=== PATIENT | female | born 1970 | race Caucasian/White ===

== ENCOUNTER 2017-03-05 11:13 | Observation (INO) | payer BC ==
[2017-02-22 09:31] VITALS: BMI 32.0
--- NOTE | 2017-02-22 09:48 | PAT Medication Instructions ---
Service Date Feb 22, 2017. Current Home Medication List Black Cohosh (Cimicifuga Racem (Black Cohosh Hot Flash Re), 2 TAB PO QAM Calcium Carbonate-Vitamin D (Calcium), 1 TAB PO QAM Coenzyme Q10 (Ubidecarenone) (Co Q 10), 100 MG PO QAM Flaxseed (Linseed) (Cvs Flaxseed Oil 1000 mg), 1 CAP PO QAM Magnesium (Chelated Magnesium), 100 MG PO QAM Multivitamin (Multivitamin), 1 TAB PO DAILY Potassium (Potassium), 75 MG PO QAM Vitamin A-Beta Carotene (Vitamin A), 1 TAB PO QAM Vitamin E (Vitamin E), 100 INTUNIT PO QAM Medication Instructions For Your Scheduled Surgery - Hold the following medications starting 02/23/17: Vitamin E (Vitamin E), 100 INTUNIT PO QAM Black Cohosh (Cimicifuga Racem (Black Cohosh Hot Flash Re), 2 TAB PO QAM Coenzyme Q10 (Ubidecarenone) (Co Q 10), 100 MG PO QAM Flaxseed (Linseed) (Cvs Flaxseed Oil 1000 mg), 1 CAP PO QAM - Hold the following medications the morning of surgery: Calcium Carbonate-Vitamin D (Calcium), 1 TAB PO QAM Magnesium (Chelated Magnesium), 100 MG PO QAM Multivitamin (Multivitamin), 1 TAB PO DAILY Potassium (Potassium), 75 MG PO QAM Vitamin A-Beta Carotene (Vitamin A), 1 TAB PO QAM If you have any questions please call us at [phone] or [phone] or [phone]
--- NOTE | 2017-02-22 10:13 | DIAGNOSTIC IMAGING REPORT ---
TWO VIEW CHEST CLINICAL HISTORY: Preoperative examination. FINDINGS: PA and lateral chest radiographs are obtained. No prior studies are available for comparison at the time of dictation. The cardiomediastinal silhouette is unremarkable. The lungs and pleural spaces are clear. There is no pneumothorax. The bony thorax appears intact. IMPRESSION: No active disease in the chest. Electronically signed by: Iron Feliciano M.D. 02/22/2017 10:11 AM Dictated Date/Time: 02/22/2017 10:10 AM
[2017-02-22 10:26] LABS: BASO % 0.6 %; BASO ABS # 0.02 K/uL (0-0.2); COMPLETE YES; EOS % 2.2 %; HEMATOCRIT 34.4 % (37-47); IG% 0.3 %; LYMPH % 36.6 %; LYMPH ABS # 1.32 K/uL (1.2-3.4); MEAN CELL VOLUME 89.8 fL (80-100); MEAN CORPUSCULAR HEMOGLOBIN 29.2 pg (25-34); MEAN CORPUSCULAR HGB CONC 32.6 g/dl (32-36); MEAN PLATELET VOLUME 10.2 fL (7.4-10.4); NEUT % 52.3 %; PLATELET COUNT 273 K/uL (130-400); RED BLOOD COUNT 3.83 M/uL (4.2-5.4); WHITE BLOOD COUNT 3.61 K/uL (4.8-10.8)
[2017-02-22 10:33] LABS: PARTIAL THROMBOPLASTIN RATIO 1.1; PROTHROMBIN TIME (PATIENT) 10.5 SECONDS (9.0-12.0)
[2017-02-22 11:25] LABS: URINE APPEARANCE CLEAR (CLEAR); URINE BILIRUBIN NEG (NEG); URINE COLOR YELLOW; URINE NITRITE NEG (NEG); URINE PH 7.5 (4.5-7.5); URINE SPECIFIC GRAVITY 1.013 (1.000-1.030); UROBILINOGEN NEG (NEG)
[2017-02-22 11:34] LABS: MANUAL MICROSCOPIC REQUIRED? NO; REVIEW REQ? NO
[2017-02-22 11:37] LABS: BUN/CREATININE RATIO 16.1 (10-20); CALCIUM 8.7 mg/dl (8.5-10.1); CREATININE 0.93 mg/dl (0.60-1.20); POTASSIUM 4.1 mmol/L (3.5-5.1)
[2017-03-05] VITALS (7 sets, daily range): BP systolic 116–128; BP diastolic 78–85; PULSE 79–98; TEMP 36.4–37.1; O2SAT 96–100; Ht 172.7 cm; Wt 96.8 kg
[~2017-03-05] VITALS: Ht 172.7 cm; Wt 96.8 kg
[~2017-03-05 11:13] MED LIST: BLAC40CA PO; CALC-51 PO; CEFAZOLIN 2000 MG/60 ML D5W 60 ML IV SCH; COEN1CAP17 PO; FLAX1CAP PO; MAGN1TAB16 PO; MULT-506 PO; POTA75TA PO; VITA1TAB12 PO; VITATAB19 PO
--- NOTE | 2017-03-05 11:49 | HISTORY & PHYSICAL EXAMINATION ---
DATE OF ADMISSION: 03/05/2017 CHIEF COMPLAINT: Back and lower extremity difficulty, being preoped for a discectomy L5-S1. HISTORY OF PRESENT ILLNESS: Marina is a delightful, she is 46. She injured herself with some yard work, developed some back pain, lower extremity difficulty and tingling to her feet over the last several months ____ see in the office, we exhausted conservative management, nonoperative management and she was scheduled for surgical intervention. She has a large disk herniation at L5-S1. PAST MEDICAL HISTORY: Positive for mild to moderate obesity and acid reflux. No hypertension, diabetes, or heart disease. PAST SURGICAL HISTORY: , appendectomy. ALLERGIES: Negative. MEDICATIONS: Denied. SOCIAL HISTORY: Nonsmoker, non-ETOH user, no drug use. REVIEW OF SYSTEMS: She denies blurred vision, double vision, tinnitus, vertigo, passing out. Denies chest pain, palpitations. No asthma, wheezing, no shortness of breath. No nausea, vomiting or bowel and bladder issues. Her major problem is her left lower extremity numbness and pain. OBJECTIVE: GENERAL: She is alert, oriented, pleasant young lady. She is 5 feet 8 inches, 210. VITAL SIGNS: Blood pressure 120/80. HEART: Pulse irregular. HEENT: ____ NEUROLOGIC: Slight numbness to the L5 and S1 distribution. She has pain with straight leg raising contralateral with straight leg raising pain, slight decreased reflex left side, on the Achilles. IMPRESSION: Disk herniation, lumbar spine. DISPOSITION: Includes lumbar spine discectomy L5-S1 today at [facility].
[2017-03-05] MEDS ORDERED: ACETTAB14 PO (12:09)
[2017-03-05] MEDS ORDERED: FENTANYL CITRATE INJ 50 MCG/1 ML 2 ML VIAL ONE (13:06)
[2017-03-05] MEDS ORDERED: MIDAZOLAM HCL 1 MG/ML 2ML VIAL ONE (13:06)
[2017-03-05] MEDS ORDERED: LABETALOL HCL IV 5 MG/ML 20ML IV PRN (13:45)
[2017-03-05] MEDS ORDERED: EpHEDrine SULFATE INJ 50 MG/ML AMP IV PRN (13:45)
[2017-03-05] MEDS ORDERED: PHENYLEPHRINE 100MCG/ML 5ML SYR IV PRN (13:45)
[2017-03-05] MEDS ORDERED: PROMETHAZINE HCL INJ 12.5 MG in SODIUM CHLORIDE 0.9% 50ML 50 ML IV PRN ×2 (13:45→16:45)
[2017-03-05] MEDS ORDERED: ONDANSETRON INJ 2 MG/ML 2 ML VIAL IV PRN ×2 (13:45→16:45)
[2017-03-05] MEDS ORDERED: HYDROmorphone INJ 1 MG/ML SYR IV PRN ×2 (13:45→16:45)
[2017-03-05] MEDS ORDERED: ATROPINE SULFATE 0.1 MG/ML 5ML SYR IV PRN (13:45)
[2017-03-05] MEDS ORDERED: FENTANYL CITRATE INJ 50 MCG/1 ML 2 ML VIAL IV PRN (13:45)
--- NOTE | 2017-03-05 14:38 | History & Physical Bridge Note ---
H&P Re-Evaluation Bridge Note: I have examined the patient, reviewed the History & Physical and in the interval since the performance of the History & Physical I have noted the following changes of clinical significance: No changes noted
[2017-03-05] MEDS ORDERED: THROMBIN FOR SOLN 20000 UNIT KIT ONE (14:52)
[2017-03-05] MEDS ORDERED: VANCOMYCIN HCL 1000MG/20ML VIAL ONE (14:52)
[2017-03-05] MEDS ORDERED: GELATIN SPONGE SZ 100 ONE (14:52)
[2017-03-05] MEDS ORDERED: BACITRACIN 50000 UNIT VIAL ONE (14:53)
[2017-03-05] MEDS ORDERED: ACETAMINOPHEN IV 100 ML IV STA (14:56)
[2017-03-05] MEDS ORDERED: BUPIVACAINE/EPINEPHRINE 0.5% MPF 1:200,000 30 ML VIAL ONE ×2 (14:57→14:58)
[2017-03-05] MEDS ORDERED: GLYCOPYRROLATE INJ 0.2 MG/ML VIAL ONE (15:41)
[2017-03-05] MEDS ORDERED: PROPOFOL IV EMULSION 10 MG/ML 20 ML VIAL IV ONE (15:41)
[2017-03-05] MEDS ORDERED: LARYING-O-JET KIT (LTA) ONE ×2 (15:41)
[2017-03-05] MEDS ORDERED: NEOSTIGMINE METHYLSULFATE 5 MG/5 ML SYR ONE (15:41)
[2017-03-05] MEDS ORDERED: ROCURONIUM BROMIDE 10 MG/ML 5 ML VIAL IV ONE (15:41)
[2017-03-05] MEDS ORDERED: ONDANSETRON INJ 2 MG/ML 2 ML VIAL ONE (15:41)
[2017-03-05] MEDS ORDERED: LIDOCAINE HCL 2% 2 ML VIAL (20MG/ML) ONE (15:41)
[2017-03-05] MEDS ORDERED: HYDROmorphone INJ 2 MG/ML SYR/VIAL ONE (15:42)
[2017-03-05] MEDS ORDERED: SODIUM CHLORIDE 0.9% 1000ML 1,000 ML IV SCH (16:31)
--- NOTE | 2017-03-05 16:32 | DIAGNOSTIC IMAGING REPORT ---
SPINE ONE VIEW, ANY LEVEL CLINICAL HISTORY: L5-S1 DISKECTOMY COMPARISON STUDY: No previous studies for comparison. Fluoroscopy time: 8 seconds. FINDINGS: 3 fluoroscopic images demonstrate surgical retractors and instruments directed toward over the L5-S1 disc space. IMPRESSION: Intraoperative localization of the L5-S1 disc space. Electronically signed by: Ross Diaz M.D. 03/05/2017 4:31 PM Dictated Date/Time: 03/05/2017 4:30 PM
--- NOTE | 2017-03-05 16:33 | [facility] Post Operative Brief Note ---
Immediate Operative Summary Operative Date Mar 05, 2017. Pre-Operative Diagnosis Disk herniation, lumbar spine. Post-Operative Diagnosis Disk herniation, lumbar spine. Procedure(s) Performed L5-S1 Discectomy Surgeon Dr. Brady Rashid Balloon Design Printer Surgeon(s) Berto Robledo PA-C Estimated Blood Loss 50mL Findings huge herniationb Specimens None per surgeon Complication(s) None Disposition Recovery Room / PACU
[2017-03-05] MEDS ORDERED: ACETAMINOPHEN 325 MG TAB PO PRN (16:45)
[2017-03-05] MEDS ORDERED: LORAZEPAM 1 MG TAB PO PRN (16:45)
[2017-03-05] MEDS ORDERED: METOCLOPRAMIDE HCL INJ 5 MG/ML 2 ML VIAL IV PRN (16:45)
[2017-03-05] MEDS ORDERED: HYDROmorphone INJ 2 MG/ML SYR/VIAL IV PRN (16:45)
[2017-03-05] MEDS ORDERED: OXYCODONE/ACETAMINOPHEN 5-325 TAB PO PRN ×2 (16:45)
[2017-03-05] MEDS ORDERED: LORAZEPAM INJ 1 MG in SYRINGE 0 ML IV PRN (16:45)
[2017-03-05] MEDS ORDERED: CEFAZOLIN IV 1,000 MG in DEXTROSE 5% 50ML 50 ML IV SCH (16:45)
[2017-03-05] MEDS ORDERED: MAGNESIUM HYDROXIDE SUSP 30 ML UDC PO PRN (16:45)
[2017-03-05] MEDS ORDERED: IV FLUIDS COMPLETED PRN (17:00)
--- NOTE | 2017-03-05 17:00 | OPERATIVE REPORT ---
DATE OF OPERATION: 03/05/2017 PREOPERATIVE DIAGNOSIS: Disc herniation L5-S1 on the left. POSTOPERATIVE DIAGNOSIS: Same. PROCEDURE: Included a lumbar spine laminotomy, foraminotomy and discectomy L5-S1. SURGEON: Brady Rashid DO PYTHON CONSULTANT: Berto Robledo PA-C COMPLICATIONS: Zero. BLOOD LOSS: Less than 50 mL. COUNTS: Sponge and needle count correct at the close. DESCRIPTION OF PROCEDURE: The patient was taken to the surgical suite, placed prone, prepped and draped sterile. We first scrubbed her with Betadine, prepped with ChloraPrep and draped sterile. We made a skin incision over L5-S1, dissecting the soft tissue roughly to the area at level of the facet joints. I did a mini laminotomy above stabilizing all structures. I do not feel I could stabilize the lamina. I did a downgoing foraminotomy on the left hand side as well, freeing up the S1 nerve root. I got laterally approximately 3-4 mm. The nerve root was completely compressed and bent against the disc itself was quite tedious dissection. We retracted the nerve root medial, also able to get a self-retaining retractor and held this. We did use a 15 scalpel blade, various types of pituitary rongeurs as I cleaned out the disc interval. I moved ____ about a few millimeters and took even more disc material and all free fragments. We then irrigated, closed in layers over vancomycin powder and Hemovac drain with 1 Vicryl suture, 2-0 and 3-0 nylon. Sterile dressings applied. The patient returned to PACU improved, stable. No apparent intraoperative complications. I attest to the content of the Intraoperative Record and any orders documented therein. Any exception s are noted below.
--- NOTE | 2017-03-05 17:10 | Anesthesiology Progress Note ---
Anesthesia Post Op Note Date & Time Mar 05, 2017 at 17:10 Vital Signs Pain Intensity: 0 Vital Signs Past 12 Hours Date Time Temp Pulse Resp B/P (MAP) Pulse Ox O2 Delivery O2 Flow Rate FiO2 03/05/17 17:00 70 14 125/62 100 Nasal Cannula 4 03/05/17 16:50 94 14 124/68 100 Oxymask 6 03/05/17 16:40 87 12 102/61 100 Oxymask 10 03/05/17 16:31 36.6 116 12 115/78 100 Oxymask 10 03/05/17 11:50 37.1 90 20 116/84 (95) 97 Room Air Notes Mental Status: alert / awake / arousable, participated in evaluation Pt Amnestic to Procedure: Yes Nausea / Vomiting: adequately controlled Pain: adequately controlled Airway Patency, RR, SpO2: stable & adequate BP & HR: stable & adequate Hydration State: stable & adequate Anesthetic Complications: no major complications apparent
[2017-03-05] MEDS: KETOROLAC TROMETHAMINE 30 MG/ML VIAL IV SCH (19:31)
[2017-03-05] MEDS: DEXAMETHASONE INJ 10 MG in SYRINGE 0 ML IV SCH (19:32)
[2017-03-05] MEDS: CEFAZOLIN IV 2,000 MG in SYRINGE 0 ML IV SCH ×2 (23:49→23:54)
[2017-03-06] MEDS: KETOROLAC TROMETHAMINE 30 MG/ML VIAL IV SCH ×2 (01:51→07:32)
[2017-03-06 03:23] VITALS: BP 113/74; PULSE 108; TEMP 36.9; O2SAT 98
[2017-03-06] MEDS: DEXAMETHASONE INJ 10 MG in SYRINGE 0 ML IV SCH ×2 (03:51→12:15)
[2017-03-06 04:05] VITALS: PULSE 105
[2017-03-06] MEDS ORDERED: NURSING DECISION MEDICATION ORDER SCH (04:15)
[2017-03-06] MEDS ORDERED: BISACODYL 10 MG SUPP PR PRN (06:00)
[2017-03-06] MEDS ORDERED: BISACODYL 5 MG TABEC PO PRN (06:00)
[2017-03-06 07:15] VITALS: BP 126/85; PULSE 104; TEMP 36.8; O2SAT 95
[2017-03-06] MEDS: CEFAZOLIN IV 2,000 MG in SYRINGE 0 ML IV SCH (07:31)
--- NOTE | 2017-03-06 07:58 | Discharge Instructions ---
Discharge Instructions Date of Service Mar 06, 2017. Admission Reason for Admission: Left L5-S1 Disc Herniation Discharge Discharge Diagnosis / Problem: same Discharge Goals Goal(s): Improve function Activity Recommendations Activity Limitations: as noted below Lifting Limitations: gradually increase as tolerated, until after follow-up appointment Exercise/Sports Limitations: until after follow-up appointment May Resume Sexual Activity: after follow-up appointment Shower/Bathe: keep incision dry just be careful . Instructions / Follow-Up Instructions / Follow-Up MEDICATIONS: Please take your prescriptions as instructed at your pre-op appointment. SPECIAL CARE: The following information is intended to answer some of the common questions and concerns regarding your surgery. Each patient is an individual and receives individual counselling throughout the course of treatment, from diagnosis to surgery all the way through recovery. What follows is not an exhaustive list, but should be a useful guide to some of the common questions and concerns patients have regarding their surgeries. These are not provided to keep you from calling us; rather, they give you something accurate and concrete to reference as you recover from your procedure. If you need us, we are available to you. As always, if you are not sure about something, call us at [phone]. MEDICAL EMERGENCIES: For these conditions, call 911 or go to your local hospital-based Emergency Department - not [facility] or equivalent. * Paralysis * Severe chest pain or difficulty breathing * Swelling or redness of either leg Spine procedures can be rather complex and though complications are rare, they do occur. In such cases, effective advice regarding emergency situations cannot always be addressed over the telephone. You may be referred to the emergency department for more effective management of your problem. Activity Limitations: It is important to give your body time to heal, so please limit your activities : * In general, don't do anything that moves your spine too much. You should avoid contact sports, twisting or heavy lifting while you recover. * 5-10 pounds is all you should attempt to lift. * You should not plan on driving for approximately 3 weeks and you should avoid traveling more than 30-45 minutes at a time. Longer trips should be broken down with walking breaks spaced appropriately. * Physical therapy is not usually required. * Walking and good posture practices will help you recover and regain your function. * Avoid straining or sudden changes in position. * In general, the goal is to take it easy and recover. Don't cause any new problems. Just relax. Showers: * Do not take a bath, use a Jacuzzi or hot tub or otherwise submerge your incision. * It is usually safe to take a shower 4-5 days after your surgery. * Your incision does not require any special creams or ointments. * Simply clean it with soap and water, dry and re-dress with a clean bandage afterwards. Incision: * Keep incision clean, dry and protected until your first follow-up appointment. * Some amount of drainage and redness is normal. Any drainage should be fairly clear and not have a foul odor. * If you feel anything is wrong or you have excessive drainage, please call us. * Your stitches and lorrie will be removed 10-14 days after your surgery. At the time of your first post-op visit. * Neck surgeries are typically closed with a suture underneath the skin. The steri-strips over the incision should be maintained until we see you in the office. Bracing: * You may be provided with a back or neck brace to encourage good posture and prevent injury. It will remind you not to do too much as you heal and will alert others to the fact that you have had a surgery. * Back braces may be removed for showers and when you are resting at home. They must be worn when you are walking around for any period of time or for travel. * For neck surgery, you will likely be provided with two cervical collars. The soft collar (Lyons or foam rubber) is worn most commonly throughout the day and while sleeping. The plastic collar (provided at the hospital) is for showering/bathing. * Except while eating, collars should remain in place. More specifically, bracing is provided for a purpose and should be worn. * Please obtain your brace or collars prior to your operation and bring them to the hospital with you on the day of surgery. * You should also bring your collars to your post-op appointment with Dr. Rashid. You should always take good care of your body and practice healthy habits, especially following surgery. You should: * Follow your doctor's treatment plan * Sit and stand properly with good posture (ears over shoulders, shoulders over hips) Don't slouch * Learn to lift correctly * Exercise regularly (low-impact aerobic exercise is especially good, but check with your doctor first) * Generally, be up and walking for 5-10 minutes at a time at least 3-4 times per day from the day you get home * Increasing walking to tolerance until you can walk for 20-30 minutes at a time * Attain and maintain a healthy body weight * Eat healthy foods ( a well-balanced, low-fat diet rich in fruits and vegetables) and get enough calcium * Avoid excessive use of alcohol When to call our office - If you notice any of the following: * Increased pain not relieve by pain medicine * Fevers greater then 100 degrees F, chills or flu symptoms * Increased redness around incision * Drainage from the incision that is not clear * Any foul smelling drainage * Swelling or fluid collection beneath the skin Miscellaneous: * In the hospital, you may be given a walker or cane for support while walking. These are temporary needs and are intended to prevent injuries due to falls. You may discontinue them when you feel strong and steady enough on your feet. * Sleep in a comfortable position. We find that many patients find a lounge chair or recliner with several pillows to be beneficial in the early post-operative period. * The support stockings should be used for 7-10 days and may be discontinued when you are back to walking more and conducting usual household activities. No problem is insignificant. We are here to help you and get you well. Contact us at [phone]. Definitions: Foraminotomy: If part of the disc or a bone spur (osteophyte) is pressing on a nerve as it leaves the vertebra (through an exit called the foramen), a foraminotomy may be done. Otomy means "to make an opening." A foraminotomy is making the opening of the foramen larger, so the nerve can exit without being compressed. Laminotomy: Similar to the foraminotomy, a laminotomy makes a larger opening, this time in your bony plate protecting your spinal canal and spinal cord (the lamina). The lamina may be pressing on your nerve, so the surgeon may make more room for the nerves using a laminotomy. Laminectomy: Sometimes, a laminotomy is not sufficient. The surgeon may need to remove all or part of the lamina. This procedure is called a laminectomy. This can often be done at many levels without any harmful effects. Current Hospital Diet Patient's current hospital diet: Regular Diet Discharge Diet Recommended Diet: Regular Diet Procedures Procedures Performed: L5-S1 Discectomy Pending Studies Studies pending at discharge: no Medical Emergencies . Who to Call and When: Medical Emergencies: If at any time you feel your situation is an emergency, please call 911 immediately. . Non-Emergent Contact Non-Emergency issues call your: Primary Care Provider Call Non-Emergent contact if: your pain is unusual for you . "Provider Documentation" section prepared by Brady Rashid. . VTE Core Measure Inpt VTE Proph given/why not?: Treatment not indicated
--- NOTE | 2017-03-06 08:30 | ORTHOPEDICS PROGRESS NOTE ---
DATE: 03/06/2017 DATE: 03/06/2017 SUBJECTIVE: She is improved, stable. Minimal complaints of pain. OBJECTIVE: Afebrile. Moves all extremities. Vital signs stable. IMPRESSION: She is now approximately 16 hours post discectomy lumbar spine, doing well. DISPOSITION: Will discharge her home later today. She has instructions, precautions provided from the office and here. We should see her back for followup in 10 days. Prescription for Painter is on her chart. Instructions, precautions given.
[2017-03-06] MEDS ORDERED: CALCIUM 600MG + VIT D 400 IU TAB PO SCH (09:00)
[2017-03-06] MEDS ORDERED: MULTIVITAMIN TAB PO SCH (09:00)
[2017-03-06] MEDS ORDERED: POTASSIUM 75 MG PO SCH (09:00)
[2017-03-06] MEDS ORDERED: MAGNESIUM 100 MG PO SCH (09:00)
[2017-03-06] MEDS ORDERED: NON-FORMULARY MEDICATION (Coenzyme Q10 (Ubidecarenone) (Co Q 10) 100 MG) PO SCH (09:00)
[2017-03-06] MEDS ORDERED: TOCOPHERYL, DL-ALPHA 100 INTERUNIT CAP PO SCH (09:00)
[2017-03-06] MEDS ORDERED: POLYETHYLENE (MIRALAX) 17 GM PACK PO SCH (09:00)
[2017-03-06] MEDS ORDERED: FLAXSEED PO SCH (09:00)
--- NOTE | 2017-03-06 10:01 | Anesthesiology Progress Note ---
Anesthesia Post Op Note Date & Time Mar 06, 2017 at 10:01 Vital Signs Vital Signs Past 12 Hours Date Time Temp Pulse Resp B/P (MAP) Pulse Ox O2 Delivery O2 Flow Rate FiO2 03/06/17 07:15 36.8 104 18 126/85 (99) 95 03/06/17 04:05 105 03/06/17 03:23 36.9 108 18 113/74 (87) 98 Room Air 03/05/17 23:50 Room Air 03/05/17 23:30 36.6 98 18 123/81 (95) 100 Room Air Notes Mental Status: alert / awake / arousable, participated in evaluation Pt Amnestic to Procedure: Yes Nausea / Vomiting: adequately controlled Pain: adequately controlled Airway Patency, RR, SpO2: stable & adequate BP & HR: stable & adequate Hydration State: stable & adequate Anesthetic Complications: no major complications apparent
[2017-03-06 12:00] VITALS: BP 128/80; PULSE 102; TEMP 36.9; O2SAT 98
[2017-03-06 13:14] VITALS: BP 128/80; PULSE 102; TEMP 36.9; O2SAT 98
== END 2017-03-06 13:40 | disposition home or self-care (01) ==
LOC: C.ACU 11:13 → C.3E 12:00 → ENRESERV 17:19
PROVIDERS: ADMIT Orthopaedic Surgery Orthopaedic Surgery of the Spine; ATTEND Orthopaedic Surgery Orthopaedic Surgery of the Spine
DX: M51.26 Other intervertebral disc displacement, lumbar region (principal); G47.33 Obstructive sleep apnea (adult) (pediatric); E66.9 Obesity, unspecified; Z68.32 Body mass index [BMI] 32.0-32.9, adult; Z90.89 Acquired absence of other organs